=== PATIENT | female | born 1980 | race African-American/Black ===

== ENCOUNTER 2016-10-28 16:08 | Emergency (ER) | payer SELFPAY ==
--- NOTE | 2016-12-04 12:11 | ER ---
ADMIT: 10/28/2016 RM/LOC: ER [facility] MR#: [id number] [facility] [id number] [place], [place] [id number] JAZZ SULTANA [address] [facility] [address] [place] [address] Emergency Room Report SEX: F AGE: 36 : 1980 DATE: 10/28/2016 This 36-year-old with chest pain. It started 7 days ago. See T-sheet for history and physical. Urine was negative. GI cocktail and Toradol was given with resolution of her symptoms. An EKG was within normal parameters. The patient was diagnosed with atypical chest pain. Instructed to follow up with her primary doctor as needed. Francesco Simon MD/ araceli JOB #: [id number] CC: Francesco Simon MD, Attending Physician Derik Dugan MD, Family Physician
== END 2016-10-28 18:20 | disposition home or self-care (01) ==
LOC: ER 16:08
DX: R07.89 Other chest pain (principal)